=== PATIENT | female | born 1940 | race Caucasian/White ===

== ENCOUNTER 2019-10-24 18:52 | Emergency (ER) | payer OTHER ==
[~2019-10-24] VITALS: Ht 160 cm; Wt 59.9 kg
[2019-10-24] MEDS ORDERED: ZESTRIL20 MG PO (19:54)
[2019-10-24] MEDS ORDERED: VITAMIN D310 MC1 (19:55)
[2019-10-24] MEDS ORDERED: TUSNEL LIQUID178 ML PO (22:08)
== END 2019-10-24 22:12 | disposition home or self-care (01) ==
LOC: ER 18:52
DX: J00 Acute nasopharyngitis [common cold] (principal)